=== PATIENT | female | born 1985 | race Caucasian/White ===

== ENCOUNTER 2017-06-05 13:54 | Emergency (ER) | payer OTHER ==
[2017-06-05 14:00] VITALS: BP 114/67
[2017-06-05] MEDS ORDERED: Lidocaine 1% MPF* 2 ML VIAL INJ ONE (14:56)
--- NOTE | 2017-06-05 18:00 | UC ---
Lauren Olvera Edward, scribed for Reuben Whittington MD on 06/05/17 at 1451 . Laceration HPI - HPI Summary HPI Summary: 31 y/o female presents to [facility] c/o cut under the nail of her L index finger. Pain is characterized as a sharp, aching pain rated 4/10 at triage. Patient cut herself at work accidentally with a serrated knife, about an hour ago. Patient states there was heavy bleeding. She can't feel the end of her L index finger now. - History Of Current Complaint Chief Complaint: UCLaceration Stated Complaint: FINGER LAC Hx Obtained From: Patient Laceration Location: Finger - L index Mechanism Of Injury: Sharp Trauma - Serrated knife Onset/Duration: Lasting Hours - About an hour ago Severity: Mild Pain Intensity: 4 Pain Scale Used: 0-10 Numeric - Allergies/Home Medications Allergies/Adverse Reactions: Allergies Allergy/AdvReac Type Severity Reaction Status Date / Time No Known Allergies Allergy Verified 12/19/15 19:47 PMH/Surg Hx/FS Hx/Imm Hx Previously Healthy: Yes Endocrine History: Other - Negative DM, Thyroid Disease Other Endocrine History: HYPOTHYROID Cardiovascular History: Other - Negative Cardiac Disease, HTN Other Cardiovascular History: . Respiratory History: Other - Negative COPD Other Respiratory History: . - Surgical History Surgical History: Yes Surgery Procedure, Year, and Place: wisdom teeth extraction - Family History Known Family History: Positive: None - Social History Occupation: Employed Full-time Lives: With Family - With Male friend Alcohol Use: Weekly Alcohol Amount: 1 glass red wine Substance Use Type: None Smoking Status (MU): Heavy Every Day Tobacco Smoker Type: Cigarettes Have You Smoked in the Last Year: Yes When Did the Patient Quit Smoking/Using Tobacco: aug 2015 Household Exposure Type: Cigarettes - Immunization History Most Recent Influenza Vaccination: never Most Recent Tetanus Shot: up to date Review of Systems Constitutional: Negative - Cut under nail of L index finger Skin: Other Eyes: Negative ENT: Negative Respiratory: Negative Cardiovascular: Negative Gastrointestinal: Negative Genitourinary: Negative Motor: Negative Neurovascular: Negative Musculoskeletal: Negative Neurological: Negative Psychological: Negative All Other Systems Reviewed And Are Negative: Yes Physical Exam Triage Information Reviewed: Yes Appearance: Well-Appearing, No Pain Distress Vital Signs: Initial Vital Signs Temp 98.2 F 06/05/17 13:55 Pulse 58 07/06/17 13:55 Resp 17 06/05/17 13:55 BP 114/67 06/05/17 13:55 Pulse Ox 100 06/05/17 13:55 Vital Signs Reviewed: Yes Eye Exam: Normal ENT: Positive: Normal ENT inspection Neck: Positive: Supple, Nontender Respiratory: Positive: Lungs clear, Normal breath sounds Cardiovascular: Positive: RRR Abdomen Description: Positive: Nontender, Soft Bowel Sounds: Positive: Present Musculoskeletal Exam: Normal Musculoskeletal: Positive: Strength Intact Neurological Exam: Normal Neurological: Positive: Alert Psychological Exam: Normal Skin: Positive: Other - 1 cm laceration in L index finger - 4 mm through soft tissue (thenar aspect), 6 mm full thickness through fingernail. Laceration Repair - Laceration Repair 1 Description: Linear Laceration Size After Repair: Length (cm) - .14 cm Debridement: None Anesthesia Used: 1.0% Lido Cleansing Completed Via Routine Prep: Yes Closure Material: Skin Adhesive - Glue over fingernail, Sutures - 2 Closure Method: Single Layer Suture Of: Skin Suture Type: Prolene - 5-0 Laceration Course/Dx - Course/Dx Course Of Treatment: Medications reviewed. SUTURES OUT IN 8-10 DAYS. RX KEFLEX FOR INFECTION PROPHYLAXIS. TD UTD. - Differential Dx - Laceration/Wound Provider Diagnoses: LEFT INDEX FINGER LACERATION Discharge - Discharge Plan Condition: Stable Disposition: HOME Prescriptions: Cephalexin CAP* [Keflex 500 CAP*] 500 mg PO TID #21 cap Patient Education Materials: Finger Laceration (ED) Referrals: Collin Pillai MD [Primary Care Provider] - Additional Instructions: FOLLOW UP WITH YOUR DOCTOR. SUTURES OUT IN 8-10 DAYS. GET RECHECKED FOR ANY WORSENING OF YOUR CONDITION; INFECTION OR QUESTIONS OR CONCERNS. The documentation as recorded by the Lauren schultz Edward accurately reflects the service I personally performed and the decisions made by me, Reuben Whittington MD.
== END 2017-06-05 15:40 | disposition home or self-care (01) ==
LOC: UCEAST 13:54
DX: S61.211A Laceration without foreign body of left index finger without damage to nail, initial encounter (principal); W26.0XXA Contact with knife, initial encounter; E03.9 Hypothyroidism, unspecified; F17.210 Nicotine dependence, cigarettes, uncomplicated
CPT/HCPCS: 12001; 99212; G0463

== ENCOUNTER 2017-06-16 17:33 | Emergency (ER) | payer SELFPAY ==
--- NOTE | 2017-06-16 18:03 | UC ---
HPI Wound/Suture Re-check - HPI Summary HPI Summary: here to have 2 stitches removed from her left index finger - History Of Current Complaint Hx Obtained From: Patient Onset/Duration: Sudden Onset, Lasting Days - 10, Resolved Severity: Moderate Pain Intensity: 0 Pain Scale Used: 0-10 Numeric <Leona Messina - Last Filed: 06/18/17 16:41> <Ashley Hickman - Last Filed: 06/18/17 18:42> - History Of Current Complaint Chief Complaint: UCLaceration Stated Complaint: SUTURE REMOVAL Time Seen by Provider: 06/16/17 17:55 - Allergies/Home Medications Allergies/Adverse Reactions: Allergies Allergy/AdvReac Type Severity Reaction Status Date / Time No Known Allergies Allergy Verified 12/19/15 19:47 PMH/Surg Hx/FS Hx/Imm Hx Previously Healthy: Yes - Surgical History Surgical History: Yes Surgery Procedure, Year, and Place: wisdom teeth extraction - Family History Known Family History: Positive: None - Social History Occupation: Employed Full-time Lives: With Family Alcohol Use: Weekly Alcohol Amount: 1 glass red wine Substance Use Type: None Smoking Status (MU): Heavy Every Day Tobacco Smoker Type: Cigarettes Have You Smoked in the Last Year: Yes When Did the Patient Quit Smoking/Using Tobacco: aug 2015 Household Exposure Type: Cigarettes - Immunization History Most Recent Influenza Vaccination: never Most Recent Tetanus Shot: up to date <Leona Messina - Last Filed: 06/18/17 16:41> Review of Systems Constitutional: Negative Skin: Other - healing wound left index finger Eyes: Negative ENT: Negative Respiratory: Negative Cardiovascular: Negative Gastrointestinal: Negative Genitourinary: Negative Motor: Negative Neurovascular: Negative Musculoskeletal: Negative Neurological: Negative Psychological: Negative All Other Systems Reviewed And Are Negative: Yes <Leona Messina - Last Filed: 06/18/17 16:41> Physical Exam Triage Information Reviewed: Yes Appearance: Well-Appearing, No Pain Distress, Well-Nourished Vital Signs: Initial Vital Signs Temp 98.5 F 06/16/17 17:52 Pulse 67 06/16/17 17:52 Resp 16 06/16/17 17:52 BP 103/44 06/16/17 17:52 Pulse Ox 100 06/16/17 17:52 Vital Signs Reviewed: Yes Eye Exam: Normal Eyes: Positive: Conjunctiva Clear ENT Exam: Normal ENT: Positive: Normal ENT inspection, Hearing grossly normal. Negative: Trismus , Muffled/hoarse voice Dental Exam: Normal Neck exam: Normal Neck: Positive: Supple, Nontender Respiratory Exam: Normal Respiratory: Positive: Chest non-tender, No respiratory distress, No accessory muscle use Cardiovascular Exam: Normal Cardiovascular: Positive: RRR, Pulses Normal, Brisk Capillary Refill Musculoskeletal Exam: Normal Musculoskeletal: Positive: Strength Intact, ROM Intact, No Edema Neurological Exam: Normal Neurological: Positive: Alert, Muscle Tone Normal Psychological Exam: Normal Skin Exam: Normal Skin: Positive: Other - healing wound left index finger <Leona Messina - Last Filed: 06/18/17 16:41> Vital Signs: Initial Vital Signs Temp 98.5 F 06/16/17 17:52 Pulse 67 06/16/17 17:52 Resp 16 06/16/17 17:52 BP 103/44 06/16/17 17:52 Pulse Ox 100 06/16/17 17:52 <Ashley Hickman - Last Filed: 06/18/17 18:42> Re-Evaluation - Re-Evaluation First Eval Change: Improved - tolerated suture removal well---wound well approximated <Leona Messina - Last Filed: 06/18/17 16:41> Course/Dx - Course Course Of Treatment: mathieu wash, follow if needed - Differential Dx - Laceration/Wound Differential Diagnoses: Healing Wound, Suture Removal Provider Diagnoses: healing wound, suture removal left index finger <Leona Messina - Last Filed: 06/18/17 16:41> Discharge <Leona Messina - Last Filed: 06/18/17 16:41> <Ashley Hickman - Last Filed: 06/18/17 18:42> - Discharge Plan Condition: Stable Disposition: HOME Patient Education Materials: Stitches Removal (ED) Referrals: Collin Pillai MD [Medical Doctor] - If Needed Attestation Statement User Type: Provider - I was available for consult. This patient was seen by the [facility]. The patient was not presented to, seen by, or examined by me. -Kacey <Ashley Hickman - Last Filed: 06/18/17 18:42>
[2017-06-16 18:05] VITALS: BP 103/44
== END 2017-06-16 18:05 | disposition home or self-care (01) ==
LOC: UCEAST 17:33
DX: Z48.02 Encounter for removal of sutures (principal)
CPT/HCPCS: 99211; G0463